=== PATIENT | female | born 1990 | race Caucasian/White ===

== ENCOUNTER 2016-10-03 19:40 | Observation (INO) | payer OTHER ==
[2016-10-03] MEDS ORDERED: methylPREDNISolone SOD SUCCI 125 MG/2 ML VIAL IV STA (20:03)
[2016-10-03] MEDS ORDERED: diphenhydrAMINE 50 MG/ML 1 ML VIAL IVP STA (20:03)
[2016-10-03] MEDS ORDERED: FAMOTIDINE 20 MG/2 ML VIAL IV STA (20:03)
[2016-10-03] MEDS ORDERED: RACEPINEPHRINE 2.25% NEB 0.5 ML NEBU INHALATION STA (20:03)
[2016-10-03] MEDS ORDERED: SODIUM CHLORIDE 0.9% 1,000 ML IV STA (20:03)
[2016-10-03] MEDS ORDERED: EPINEPHrine 1 MG/ML 1 ML AMP SQ ONE (20:08)
[2016-10-03] MEDS ORDERED: ONDANSETRON 4 MG/2 ML VIAL IVP STA (20:40)
[2016-10-03] MEDS ORDERED: MORPHINE SULFATE 4 MG/ML SYRINGE IVP STA (20:40)
[2016-10-03] MEDS ORDERED: HYDROmorphone 2 MG/ML 1 ML SYRINGE IVP STA ×2 (20:40→21:48)
--- NOTE | 2016-10-03 21:14 | ED ---
General Adult HPI - General Chief complaint: Allergic Reaction Stated complaint: Allergic Reaction Time Seen by Provider: 10/03/16 19:52 Source: patient, RN notes reviewed, old records reviewed Mode of arrival: wheelchair Limitations: no limitations - History of Present Illness Initial comments: This is a 25-year-old female here for evaluation of ALLERGIC reaction, patient has a peanut ALLERGY was exposed to peanuts today. Patient states she is having swelling of her mouth swelling of her tongue and mild shortness of breath , difficulty with swallowing. Patient does have a history of anaphylaxis, did take EpiPen to arrival. Patient states she is also having mild difficulty speaking - Related Data Home Medications Medication Instructions Recorded Confirmed Albuterol Inhaler [Ventolin Hfa 2 puff INHALATION RT-DAILY PRN 10/03/16 10/03/16 Inhaler] Albuterol Nebulized [Ventolin 2.5 mg INHALATION Q4H PRN 10/03/16 10/03/16 Nebulized] Famotidine [Pepcid] 20 mg PO BID 10/03/16 10/03/16 Fluticasone/Salmeterol [Advair 1 puff INHALATION RT-BID 10/03/16 10/03/16 500-50 Diskus] Fluticasone/Vilanterol [Breo 1 puff INHALATION RT-DAILY 10/03/16 10/03/16 Ellipta 100-25 Mcg Inhaler] Furosemide [Lasix] 40 mg PO DAILY 10/03/16 10/03/16 HYDROmorphone HCL 2 mg PO Q4HR PRN 10/03/16 10/03/16 INSULIN LISPRO (HumaLOG) [HumaLOG] 20 units SQ TID 10/03/16 10/03/16 Insulin Aspart [NovoLOG] 20 unit SQ TID 10/03/16 10/03/16 Insulin Glargine,Hum.rec.anlog 50 unit SQ HS 10/03/16 10/03/16 [Lantus Solostar] LORazepam [Ativan] 2 mg PO TID PRN 10/03/16 10/03/16 Montelukast Sodium [Singulair] 10 mg PO DAILY 10/03/16 10/03/16 NIFEdipine XL [Procardia Xl] 90 mg PO DAILY 10/03/16 10/03/16 QUEtiapine FUMARATE [Seroquel] 300 mg PO HS 10/03/16 10/03/16 Ranitidine HCl [Zantac] 150 mg PO DAILY 10/03/16 10/03/16 diphenhydrAMINE [Benadryl] 25 mg PO DAILY PRN 10/03/16 10/03/16 diphenhydrAMINE [Benadryl] 50 mg PO HS PRN 10/03/16 10/03/16 hydrALAZINE HCL 75 mg PO TID 10/03/16 10/03/16 metFORMIN HCL [Metformin HCl] 1,000 mg PO BID 10/03/16 10/03/16 traZODone HCL 200 mg PO BID 10/03/16 10/03/16 Allergies Allergy/AdvReac Type Severity Reaction Status Date / Time acetaminophen [From Tylenol] Allergy Anaphylaxis Verified 10/03/16 20:47 aspirin Allergy Anaphylaxis Verified 10/03/16 20:47 codeine Allergy Unknown Verified 10/03/16 20:47 ibuprofen [From Motrin] Allergy Anaphylaxis Verified 10/03/16 20:47 Iodinated Contrast Media - Allergy Unknown Verified 10/03/16 20:47 Oral and ipratropium [From Atrovent] Allergy Unknown Verified 10/03/16 20:47 peanut Allergy Anaphylaxis Verified 10/03/16 20:47 SEAFOOD Allergy Unknown Uncoded 10/03/16 20:47 Review of Systems ROS Statement: Those systems with pertinent positive or pertinent negative responses have been documented in the HPI. ROS Other: All systems not noted in ROS Statement are negative. Past Medical History Past Medical History: Asthma, Diabetes Mellitus, Hypertension, Seizure Disorder Additional Past Medical History / Comment(s): arthritis History of Any Multi-Drug Resistant Organisms: None Reported Smoking Status: Never smoker Past Alcohol Use History: Occasional Past Drug Use History: None Reported General Exam - General Exam Comments Initial Comments: No stridor noted, she does have oral swelling and angioedema Limitations: no limitations General appearance: alert, in no apparent distress Head exam: Present: atraumatic, normocephalic, normal inspection Eye exam: Present: normal appearance, PERRL, EOMI. Absent: scleral icterus, conjunctival injection, periorbital swelling ENT exam: Present: normal exam, mucous membranes moist Neck exam: Present: normal inspection. Absent: tenderness, meningismus, lymphadenopathy Respiratory exam: Present: normal lung sounds bilaterally. Absent: respiratory distress, wheezes, rales, rhonchi, stridor Cardiovascular Exam: Present: regular rate, normal rhythm, normal heart sounds. Absent: systolic murmur, diastolic murmur, rubs, gallop, clicks GI/Abdominal exam: Present: soft, normal bowel sounds. Absent: distended, tenderness, guarding, rebound, rigid Extremities exam: Present: normal inspection, full ROM, normal capillary refill. Absent: tenderness, pedal edema, joint swelling, calf tenderness Back exam: Present: normal inspection Neurological exam: Present: alert, oriented X3, CN II-XII intact Psychiatric exam: Present: normal affect, normal mood Skin exam: Present: warm, dry, intact, normal color. Absent: rash Course Vital Signs 10/03/16 10/03/16 10/03/16 19:43 20:16 20:25 Temperature 101.5 F H Pulse Rate 117 H 110 H 107 H Respiratory 20 Rate Blood Pressure 133/79 O2 Sat by Pulse 96 Oximetry 10/03/16 21:15 Temperature Pulse Rate 118 H Respiratory 20 Rate Blood Pressure 133/79 O2 Sat by Pulse 96 Oximetry - Reevaluation(s) Reevaluation #1: 10/03/16 21:13 Patient does have mild improvement at this time, again no stridor Reevaluation #2: 10/03/16 21:55 Patient having generalized pain, occasional shortness of breath Medical Decision Making - Medical Decision Making 25-year-old year with ALLERGIC reaction, exposure to peanuts, swollen tongue with angioedema, anaphylaxis given epi, patient will be admitted for continued antihistamine treatment and monitoring her cardiopulmonary status Disposition Clinical Impression: Allergic reaction, Anaphylaxis Disposition: HOME SELF-CARE Condition: Good Instructions: Anaphylaxis (ED) Referrals: Jackson Candelaria MD [Primary Care Provider] - 1-2 days
[2016-10-03 23:00] LABS: Glucose,Whole Blood 398 mg/dL (75-99)
[2016-10-03] MEDS ORDERED: INSULIN LISPRO (humaLOG) 300 UNIT/3 ML VIAL SQ ONE (23:17)
[2016-10-03] MEDS ORDERED: INSULIN GLARGINE 100 UNIT/ML 10 ML VIAL SQ SCH (23:30)
[2016-10-03] MEDS: methylPREDNISolone SOD SUCCI 125 MG/2 ML VIAL IV SCH (23:42)
[2016-10-04 00:57] VITALS: BMI 39.8
[2016-10-04] MEDS: HYDROmorphone 2 MG/ML 1 ML SYRINGE IVP PRN ×4 (02:00→13:59)
[2016-10-04] MEDS: diphenhydrAMINE 50 MG/ML 1 ML VIAL IVP PRN ×2 (02:02→08:09)
[2016-10-04 02:33] LABS: Glucose,Whole Blood 280 mg/dL (75-99)
[2016-10-04] MEDS: methylPREDNISolone SOD SUCCI 125 MG/2 ML VIAL IV SCH ×3 (05:59→11:57)
[2016-10-04 07:32] LABS: Glucose,Whole Blood 248 mg/dL (75-99)
[2016-10-04 07:36] VITALS: RESP 16
[2016-10-04] MEDS: INSULIN LISPRO (humaLOG) 300 UNIT/3 ML VIAL SQ SCH ×3 (08:16→17:38)
[2016-10-04] MEDS ORDERED: ENOXAPARIN 40 MG/0.4 ML SYRINGE SQ SCH (09:00)
[2016-10-04] MEDS ORDERED: FAMOTIDINE 20 MG/2 ML VIAL IV SCH (09:00)
[2016-10-04] MEDS ORDERED: methylPREDNISolone SOD SUCCI 125 MG/2 ML VIAL IV STA (10:21)
[2016-10-04] MEDS ORDERED: diphenhydrAMINE 50 MG/ML 1 ML VIAL IVP PRN (11:45)
[2016-10-04 12:20] LABS: Glucose,Whole Blood 349 mg/dL (75-99)
[2016-10-04 12:59] LABS: Anisocytosis Slight; Basophils % (A) 0 %; CH 19.8; CHCM 26.8; Eosinophils # (A) 0.1 k/uL (0-0.7); Eosinophils % (A) 1 %; HCT 34.3 % (34.0-46.0); HDW 3.56; HGB 9.5 gm/dL (11.4-16.0); Hypochromasia Marked; Luc # (Auto) 0.06; Luc % (Auto) 1; Lymphocytes # (A) 1.1 k/uL (1.0-4.8); Lymphocytes % (A) 10 %; MCH 20.6 pg (25.0-35.0); MCHC 27.8 g/dL (31.0-37.0); MCV 74.3 fL (80.0-100.0); Mean Platelet Volume 7.1; Microcytosis Moderate; Monocytes # (A) 0.2 k/uL (0-1.0); Monocytes % (A) 2 %; Neutrophils # (A) 9.3 k/uL (1.3-7.7); Neutrophils % (A) 87 %; Poikilocytosis Slight; RBC 4.61 m/uL (3.80-5.40); RDW 18.9 % (11.5-15.5); WBC 10.7 k/uL (3.8-10.6); WBC (Perox) 11.51
[2016-10-04 13:08] LABS: Anion Gap 9 mmol/L; Blood Urea Nitrogen 20 mg/dL (7-17); Calcium 9.8 mg/dL (8.4-10.2); Carbon Dioxide 23 mmol/L (22-30); Chloride 102 mmol/L (98-107); Glucose 306 mg/dL (74-99); Non-African American GFR(MDRD) >60 (>60 ml/min/1.73 sqM); Potassium 5.1 mmol/L (3.5-5.1); Sodium 134 mmol/L (137-145)
[2016-10-04] MEDS ORDERED: ALBUTEROL NEBULIZED 2.5 MG/3 ML INHALATION PRN ×2 (14:55)
[2016-10-04 15:01] LABS: Hemoglobin A1C 9.3 % (4.2-6.1)
[2016-10-04 15:04] VITALS: BP 137/88; PULSE 100; TEMP 97
[2016-10-04] MEDS ORDERED: HYDROmorphone 2 MG TAB PO PRN (15:16)
[2016-10-04] MEDS ORDERED: INSULIN LISPRO (humaLOG) 300 UNIT/3 ML VIAL SQ SCH (16:00)
--- NOTE | 2016-10-04 17:00 | HP ---
DATE OF ADMISSION: Patient is a 25-year-old female who is admitted because of allergic reaction to peanuts. Patient was exposed to peanuts; patient did not actually eat peanuts, but she just says she was exposed, and even the smell makes her have an allergic reaction, because of which patient was started on systemic steroids and patient was admitted. On exam, patient still has stridor and does have edema of the throat and tongue. Patient has multiple other medical issues, and patient is on multiple medications. Patient is tachycardic, hyponatremic because of her medications, including Aldactone, Lasix and hydralazine. Patient has difficulty in speech. Patient denied any fever or chills. Patient denied any nausea, vomiting, abdominal pain. Patient is ambulating in the hallways. Patient's blood sugars are elevated because of the systemic steroids. REVIEW OF SYSTEMS: GENERAL: As described in HPI. CONSTITUTIONAL: No fever, no malaise, no fatigue. HEENT: As described in HPI. CARDIOVASCULAR: No chest pain, orthopnea, PND, no palpitations, no syncope. PULMONARY: No shortness of breath, no cough, no hemoptysis. GASTROINTESTINAL: No diarrhea, no nausea, no vomiting, no abdominal pain. Normoactive bowel sounds. NEUROLOGICAL: No headaches, no weakness, no numbness. HEMATOLOGICAL: Denies any bleeding or petechiae. GENITOURINARY: Denies any burning micturition, frequency, or urgency. MUSCULOSKELETAL/RHEUMATOLOGICAL: Denies any joint pain, swelling, or any muscle pain. ENDOCRINE: Denies any polyuria or polydipsia. The rest of the 14 point review of systems is negative. HOME MEDICATIONS: 1. Albuterol. 2. Famotidine. 3. Fluticasone/salmeterol. 4. Lasix. 5. Hydromorphone. 6. Aspart. 7. Glargine. 8. Lorazepam. 9. Montelukast. 10. Nifedipine. 11. Seroquel. 12. Ranitidine. 13. Diphenhydramine. 14. Hydralazine. 15. Metformin. 16. Trazodone. ALLERGIES: 1. ACETAMINOPHEN. 2. ASPIRIN. 3. CODEINE. 4. IBUPROFEN. 5. PEANUT ALLERGY. 6. SEAFOOD ALLERGY. Past medical history is significant for: 1. Asthma. 2. Diabetes mellitus. 3. Hypertension. 4. Seizure disorder. 5. Multiple allergies, as mentioned above. SOCIAL HISTORY: Denied any smoking, alcohol abuse or any drug abuse. FAMILY HISTORY: None available at this point of time. Not relevant to her present medical problem, either. PHYSICAL EXAMINATION: VITAL SIGNS: Temperature 97.0, pulse of 100, respiratory rate of 16, blood pressure 137/88. Saturating at 93% on room air. GENERAL: The patient is alert and oriented x3, not in any acute distress. Well developed, well nourished. HEENT: Patient has angioedema, swollen tongue and swollen airway. CARDIOVASCULAR: S1 and S2 present. No murmurs, rubs, or gallops. PULMONARY: Patient has inspiratory stridor. No wheezing was appreciated. Fairly good air entry into bilateral lung warren. ABDOMEN: Soft, nontender, nondistended, normoactive bowel sounds. No palpable organomegaly. MUSCULOSKELETAL: No joint swelling or deformity. EXTREMITIES: No cyanosis, clubbing, or pedal edema. NEUROLOGICAL: Gross neurological examination did not reveal any focal deficits. SKIN: No rashes. LABORATORY DATA: CBC, CMP are abnormal for elevated WBC count of 10,700 due to systemic steroids. Patient has microcytic anemia, probably iron deficiency. Sodium of 134, potassium 5.1. Aldactone, spironolactone and Lasix are being discontinued because of that reason. ASSESSMENT AND PLAN: 1. Angioedema allergic reaction. Management as mentioned above with anticholinergic medication Benadryl and systemic steroids. Patient still has significant swelling of the tongue and stridor, because of which I am going to hold her here for today. Possibility of discharge tomorrow. 2. Asthma without any acute exacerbation. 3. Diabetes mellitus; uncontrolled blood sugars due to systemic steroids. 4. Hypertension. 5. Diabetes mellitus; uncontrolled blood sugars due to above-mentioned reasons. Patient's metformin will be continued. 6. Hyponatremia secondary to Aldactone and Lasix, which are being discontinued. 7. Tachycardia due to hydralazine and mild dehydration. Those medications will be discontinued. At this point of time I do not believe patient will need IV fluids. Patient is drinking water very well. Will monitor her today. Possibility of discharge tomorrow.
[2016-10-04 17:24] LABS: Glucose,Whole Blood 430 mg/dL (75-99)
[2016-10-04] MEDS ORDERED: metFORMIN 500 MG TAB PO SCH (17:30)
[2016-10-04] MEDS ORDERED: SYMBICORT 160-4.5 MCG INHALER INHALATION SCH (20:00)
[2016-10-04] MEDS ORDERED: QUEtiapine 100 MG TAB PO SCH (21:00)
[2016-10-04] MEDS ORDERED: predniSONE 20 MG TAB PO SCH (21:00)
[2016-10-04] MEDS ORDERED: METOPROLOL SUCCINATE (ER) 25 MG TAB.ER.24H PO SCH (21:00)
[2016-10-04] MEDS ORDERED: INSULIN GLARGINE 100 UNIT/ML 10 ML VIAL SQ SCH (21:00)
[2016-10-04] MEDS ORDERED: traZODone HCL 100 MG TAB PO SCH (21:00)
[2016-10-04] MEDS ORDERED: FAMOTIDINE 20 MG TAB PO SCH (21:00)
[2016-10-05] MEDS ORDERED: MONTELUKAST 10 MG TAB PO SCH (09:00)
[2016-10-05] MEDS ORDERED: FERROUS SULFATE 325 MG TAB PO SCH (09:00)
[2016-10-05] MEDS ORDERED: NIFEdipine XL 90 MG TAB.ER.24 PO SCH (09:00)
--- NOTE | 2016-10-06 13:42 | DS ---
DATE OF ADMISSION: 10/03/2016 DATE OF DISCHARGE: 10/04/2016 The patient left AGAINST MEDICAL ADVICE yesterday.
== END 2016-10-04 18:45 | disposition left against medical advice (07) ==
LOC: EC 19:40 → INTOOBSV 21:49 → 5MS5E 21:49
PROVIDERS: ADMIT Hospitalist; ATTEND Hospitalist
DX: T78.01XA Anaphylactic reaction due to peanuts, initial encounter (principal); J45.909 Unspecified asthma, uncomplicated; I10 Essential (primary) hypertension; M19.90 Unspecified osteoarthritis, unspecified site; D50.9 Iron deficiency anemia, unspecified; E11.65 Type 2 diabetes mellitus with hyperglycemia; E87.1 Hypo-osmolality and hyponatremia; T50.0X5A Adverse effect of mineralocorticoids and their antagonists, initial encounter; E86.0 Dehydration; G40.909 Epilepsy, unspecified, not intractable, without status epilepticus; Z79.899 Other long term (current) drug therapy; Z79.4 Long term (current) use of insulin; Z79.51 Long term (current) use of inhaled steroids; Z79.84 Long term (current) use of oral hypoglycemic drugs; Z88.6 Allergy status to analgesic agent; Z91.041 Radiographic dye allergy status; Z88.5 Allergy status to narcotic agent; Z91.010 Allergy to peanuts; Z91.013 Allergy to seafood
CPT/HCPCS: 96376 ×3; 96372 ×2; 96374; 96375; 99285; 94640; 84439; 80048; 84443; 83036; 85025; G0378 ×2; J0171; J1170 ×2; J1200 ×2; J2930 ×2; J2405; J1650

== ENCOUNTER 2017-10-13 19:41 | Emergency (ER) | payer OTHER ==
[2017-10-13] MEDS ORDERED: methylPREDNISolone SOD SUCCI 125 MG/2 ML VIAL IV STA (19:43)
[2017-10-13] MEDS ORDERED: diphenhydrAMINE 50 MG CAP PO STA (19:43)
[2017-10-13] MEDS ORDERED: FAMOTIDINE 20 MG/2 ML VIAL IV STA (19:43)
[2017-10-13] MEDS ORDERED: diphenhydrAMINE 50 MG/ML 1 ML VIAL IM STA (19:56)
[2017-10-13] MEDS ORDERED: methylPREDNISolone SOD SUCCI 125 MG/2 ML VIAL IM ONE (19:57)
[2017-10-13] MEDS ORDERED: ALBUTEROL NEBULIZED 2.5 MG/3 ML INHALATION STA (20:17)
--- NOTE | 2017-10-13 20:30 | XR ---
EXAMINATION TYPE: XR chest 1V portable DATE OF EXAM: 10/13/2017 COMPARISON: NONE HISTORY: Difficulty breathing TECHNIQUE: Single frontal view of the chest is obtained. FINDINGS: There is no heart failure nor confluent pneumonic infiltrate. There is slight blunting of left costophrenic angle. Mediastinum is normal. There are chest leads. Bony thorax appears intact. IMPRESSION: There is some pleural reaction at the left lateral lung base. No heart failure.
--- NOTE | 2017-10-13 20:33 | ED ---
General Adult HPI - General Chief complaint: Allergic Reaction Stated complaint: ALLERGIC REACTION Time Seen by Provider: 10/13/17 19:42 Source: patient, RN notes reviewed, old records reviewed Mode of arrival: wheelchair Limitations: no limitations - History of Present Illness Initial comments: 26-year-old female presenting for suspected ALLERGIC reaction. Patient has history of multiple food drug ALLERGIES. She believes her food was cross contaminated with peanuts. She does have a severe peanut ALLERGY. She did not have her EpiPen available. She developed tongue and lip swelling. She was brought from just outside the hospital. She normally lives out of town and did not have her medication with her. The patient states she's had many reactions in the past. She also has asthma, hypertension and CHF and morbid obesity. She is not currently on any Umair inhibitors. She has been intubated for her asthma in the past and his history of tracheostomy. She currently does not have a tracheostomy. No abdominal pain or nausea vomiting. - Related Data Home Medications Medication Instructions Recorded Confirmed Albuterol Inhaler [Ventolin Hfa 2 puff INHALATION RT-DAILY PRN 10/03/16 10/03/16 Inhaler] Albuterol Nebulized [Ventolin 2.5 mg INHALATION Q4H PRN 10/03/16 10/03/16 Nebulized] Famotidine [Pepcid] 20 mg PO BID 10/03/16 10/03/16 Ferrous Sulfate [Iron] 325 mg PO DAILY 10/03/16 10/03/16 Fluticasone/Salmeterol [Advair 1 puff INHALATION RT-BID 10/03/16 10/03/16 500-50 Diskus] Fluticasone/Vilanterol [Breo 1 puff INHALATION RT-DAILY 10/03/16 10/03/16 Ellipta 100-25 Mcg Inhaler] Furosemide [Lasix] 40 mg PO DAILY 10/03/16 10/03/16 HYDROmorphone HCL 2 mg PO Q4HR PRN 10/03/16 10/03/16 INSULIN LISPRO (HumaLOG) [HumaLOG] 20 units SQ TID 10/03/16 10/03/16 Insulin Aspart [NovoLOG] 20 unit SQ TID 10/03/16 10/03/16 Insulin Glargine,Hum.rec.anlog 50 unit SQ HS 10/03/16 10/03/16 [Lantus Solostar] LORazepam [Ativan] 2 mg PO TID PRN 10/03/16 10/03/16 Metoprolol Succinate (ER) [Toprol 25 mg PO BID 10/03/16 10/03/16 Xl] Montelukast Sodium [Singulair] 10 mg PO DAILY 10/03/16 10/03/16 NIFEdipine XL [Procardia Xl] 90 mg PO DAILY 10/03/16 10/03/16 QUEtiapine FUMARATE [Seroquel] 300 mg PO HS 10/03/16 10/03/16 Ranitidine HCl [Zantac] 150 mg PO DAILY 10/03/16 10/03/16 Spironolactone 50 mg PO DAILY 10/03/16 10/03/16 diphenhydrAMINE [Benadryl] 25 mg PO DAILY PRN 10/03/16 10/03/16 diphenhydrAMINE [Benadryl] 50 mg PO HS PRN 10/03/16 10/03/16 hydrALAZINE HCL 75 mg PO TID 10/03/16 10/03/16 metFORMIN HCL [Metformin HCl] 1,000 mg PO BID 10/03/16 10/03/16 traZODone HCL 200 mg PO BID 10/03/16 10/03/16 Previous Rx's Medication Instructions Recorded Albuterol Inhaler [Ventolin Hfa 1 - 2 puff INHALATION Q4HR PRN #1 10/13/17 Inhaler] inhaler EPINEPHrine [Epipen 2-Pwael] 0.3 mg IM ONCE PRN #1 pack 10/13/17 diphenhydrAMINE [Benadryl] 25 mg PO TID PRN #21 capsule 10/13/17 predniSONE 50 mg PO DAILY #5 tab 10/13/17 Allergies Allergy/AdvReac Type Severity Reaction Status Date / Time acetaminophen [From Tylenol] Allergy Anaphylaxis Verified 10/13/17 19:55 aspirin Allergy Anaphylaxis Verified 10/13/17 19:55 codeine Allergy Unknown Verified 10/13/17 19:55 ibuprofen [From Motrin] Allergy Anaphylaxis Verified 10/13/17 19:55 Iodinated Contrast- Oral and Allergy Unknown Verified 10/13/17 19:55 IV Dye [Iodinated Contrast Media - Oral and] ipratropium [From Atrovent] Allergy Unknown Verified 10/13/17 19:55 peanut Allergy Anaphylaxis Verified 10/13/17 19:55 SEAFOOD Allergy Unknown Uncoded 10/13/17 19:55 Review of Systems ROS Statement: Those systems with pertinent positive or pertinent negative responses have been documented in the HPI. ROS Other: All systems not noted in ROS Statement are negative. Past Medical History Past Medical History: Asthma, Diabetes Mellitus, Hypertension, Seizure Disorder Additional Past Medical History / Comment(s): arthritis. Pt states she has chf History of Any Multi-Drug Resistant Organisms: None Reported Additional Past Surgical History / Comment(s): tracheostomy Past Psychological History: Anxiety, Bipolar, Depression, Schizophrenia Smoking Status: Never smoker Past Alcohol Use History: Occasional Past Drug Use History: None Reported General Exam Limitations: no limitations General appearance: alert, in no apparent distress Head exam: Present: atraumatic, normocephalic Eye exam: Present: normal appearance, PERRL, EOMI ENT exam: Present: other (She has some lower lip swelling and mild tongue swelling, no posterior pharyngeal swelling or uvular swelling. There is no stridor.) Respiratory exam: Absent: respiratory distress, wheezes Cardiovascular Exam: Present: normal rhythm, tachycardia GI/Abdominal exam: Present: soft. Absent: distended, tenderness Extremities exam: Present: normal inspection, normal capillary refill. Absent: pedal edema Neurological exam: Present: alert, oriented X3, CN II-XII intact. Absent: motor sensory deficit Psychiatric exam: Present: normal affect, normal mood Skin exam: Present: warm, dry, intact. Absent: cyanosis, diaphoretic Course Vital Signs 10/13/17 10/13/17 10/13/17 19:43 19:57 20:01 Temperature 96.9 F L Pulse Rate 118 H 112 H Respiratory 20 16 14 Rate Blood Pressure 153/74 153/74 O2 Sat by Pulse 97 97 Oximetry 10/13/17 10/13/17 10/13/17 20:18 20:28 20:44 Temperature Pulse Rate 108 H 100 100 Respiratory 19 Rate Blood Pressure 127/63 O2 Sat by Pulse 98 Oximetry 10/13/17 20:55 Temperature Pulse Rate 105 H Respiratory 18 Rate Blood Pressure 96/50 O2 Sat by Pulse 97 Oximetry - Reevaluation(s) Reevaluation #1: 10/13/17 22:18 Patient observed with improvement in lip and tongue swelling. No respiratory distress. No signs of anaphylaxis. Medical Decision Making - Medical Decision Making 26-year-old female presents with suspected. ALLERGIC reaction. Patient is morbidly obese, she does have some possible lower lip swelling and tongue swelling or she is speaking in full sentences there is no posterior swelling. No stridor. No respiratory distress. No vomiting or abdominal pain. She does have history of asthma and multiple ALLERGIC reactions. She has been intubated in the past however I feel this occasion he is not severe. She is given steroids, Pepcid, and Benadryl. She has improvement of her symptoms. She is ambulatory in the emergency department without difficulty. She is watching TV and drinking juice. She will be given a prescription for Benadryl, steroids, and refill of her EpiPen. Disposition Clinical Impression: Food allergy, Allergic reaction Disposition: HOME SELF-CARE Condition: Good Instructions: Food Allergy (ED), Peanut Allergy (ED) Additional Instructions: Please follow up with her primary care physician. Prescriptions: Albuterol Inhaler [Ventolin Hfa Inhaler] 1 - 2 puff INHALATION Q4HR PRN #1 inhaler PRN Reason: Shortness Of Breath diphenhydrAMINE [Benadryl] 25 mg PO TID PRN #21 capsule PRN Reason: Allergic Reaction EPINEPHrine [Epipen 2-Pawel] 0.3 mg IM ONCE PRN #1 pack PRN Reason: Allergic Reaction predniSONE 50 mg PO DAILY #5 tab Is patient prescribed a controlled substance at d/c from ED?: No Referrals: Nonstaff,Physician [Primary Care Provider] - 1-2 days Time of Disposition: 22:25
[2017-10-13 22:42] VITALS: BP 125/60; PULSE 101; RESP 19; TEMP 98.2
== END 2017-10-13 22:47 | disposition home or self-care (01) ==
LOC: EC 19:41
DX: T78.1XXA Other adverse food reactions, not elsewhere classified, initial encounter (principal); R00.0 Tachycardia, unspecified; J45.909 Unspecified asthma, uncomplicated; I11.0 Hypertensive heart disease with heart failure; I50.9 Heart failure, unspecified; E11.9 Type 2 diabetes mellitus without complications; F20.9 Schizophrenia, unspecified; F31.9 Bipolar disorder, unspecified; F41.9 Anxiety disorder, unspecified; E66.01 Morbid (severe) obesity due to excess calories; Z79.4 Long term (current) use of insulin; Z79.51 Long term (current) use of inhaled steroids; Z79.899 Other long term (current) drug therapy; Z88.5 Allergy status to narcotic agent; Z88.6 Allergy status to analgesic agent; Z88.8 Allergy status to other drugs, medicaments and biological substances; Z91.010 Allergy to peanuts; Z91.013 Allergy to seafood; Z91.041 Radiographic dye allergy status; Z68.38 Body mass index [BMI] 38.0-38.9, adult; Z53.8 Procedure and treatment not carried out for other reasons
CPT/HCPCS: 94640; 71045; 99285; 96372 ×2; J1200; J2930

== ENCOUNTER 2017-10-14 09:43 | Observation (INO) | payer OTHER ==
[2017-10-14] MEDS ORDERED: DEXAMETHASONE SOD PHOSPHATE 10 MG/ML 1 ML VIAL IV STA (10:03)
[2017-10-14] MEDS ORDERED: diphenhydrAMINE 50 MG/ML 1 ML VIAL IVP STA (10:03)
[2017-10-14] MEDS ORDERED: SODIUM CHLORIDE 0.9% 1,000 ML IV ONE (10:03)
[2017-10-14] MEDS ORDERED: EPINEPHrine 1 MG/ML 1 ML AMP SQ PRN (10:03)
[2017-10-14] MEDS ORDERED: FAMOTIDINE 20 MG/2 ML VIAL IV STA (10:03)
--- NOTE | 2017-10-14 10:11 | ED ---
General Adult HPI - General Chief complaint: Allergic Reaction Stated complaint: Allergic Reaction Time Seen by Provider: 10/14/17 09:56 Source: patient, RN notes reviewed, old records reviewed Mode of arrival: EMS Limitations: physical limitation - History of Present Illness Initial comments: This is a 26-year-old female the ER for evaluation. Patient resents today for evaluation of swelling, patient afebrile except as a transfer patient. Patient states she feels like her tongue and lip are swollen. She was in the hospital last night for similar complaint. Patient to go to [facility] after discharge states she is very she currently. Denies shortness of breath. Patient states she received epinephrine a prior hospital. She thinks she was exposed to peanuts. She does admit to history of multiple intubations and significant hospitalizations - Related Data Home Medications Medication Instructions Recorded Confirmed Albuterol Inhaler [Ventolin Hfa 2 puff INHALATION RT-DAILY PRN 10/03/16 10/03/16 Inhaler] Albuterol Nebulized [Ventolin 2.5 mg INHALATION Q4H PRN 10/03/16 10/03/16 Nebulized] Famotidine [Pepcid] 20 mg PO BID 10/03/16 10/03/16 Ferrous Sulfate [Iron] 325 mg PO DAILY 10/03/16 10/03/16 Fluticasone/Salmeterol [Advair 1 puff INHALATION RT-BID 10/03/16 10/03/16 500-50 Diskus] Fluticasone/Vilanterol [Breo 1 puff INHALATION RT-DAILY 10/03/16 10/03/16 Ellipta 100-25 Mcg Inhaler] Furosemide [Lasix] 40 mg PO DAILY 10/03/16 10/03/16 HYDROmorphone HCL 2 mg PO Q4HR PRN 10/03/16 10/03/16 INSULIN LISPRO (HumaLOG) [HumaLOG] 20 units SQ TID 10/03/16 10/03/16 Insulin Aspart [NovoLOG] 20 unit SQ TID 10/03/16 10/03/16 Insulin Glargine,Hum.rec.anlog 50 unit SQ HS 10/03/16 10/03/16 [Lantus Solostar] LORazepam [Ativan] 2 mg PO TID PRN 10/03/16 10/03/16 Metoprolol Succinate (ER) [Toprol 25 mg PO BID 10/03/16 10/03/16 Xl] Montelukast Sodium [Singulair] 10 mg PO DAILY 10/03/16 10/03/16 NIFEdipine XL [Procardia Xl] 90 mg PO DAILY 10/03/16 10/03/16 QUEtiapine FUMARATE [Seroquel] 300 mg PO HS 10/03/16 10/03/16 Ranitidine HCl [Zantac] 150 mg PO DAILY 10/03/16 10/03/16 Spironolactone 50 mg PO DAILY 10/03/16 10/03/16 diphenhydrAMINE [Benadryl] 25 mg PO DAILY PRN 10/03/16 10/03/16 diphenhydrAMINE [Benadryl] 50 mg PO HS PRN 10/03/16 10/03/16 hydrALAZINE HCL 75 mg PO TID 10/03/16 10/03/16 metFORMIN HCL [Metformin HCl] 1,000 mg PO BID 10/03/16 10/03/16 traZODone HCL 200 mg PO BID 10/03/16 10/03/16 Previous Rx's Medication Instructions Recorded Albuterol Inhaler [Ventolin Hfa 1 - 2 puff INHALATION Q4HR PRN #1 10/13/17 Inhaler] inhaler EPINEPHrine [Epipen 2-Pawel] 0.3 mg IM ONCE PRN #1 pack 10/13/17 diphenhydrAMINE [Benadryl] 25 mg PO TID PRN #21 capsule 10/13/17 predniSONE 50 mg PO DAILY #5 tab 10/13/17 Allergies Allergy/AdvReac Type Severity Reaction Status Date / Time acetaminophen [From Tylenol] Allergy Anaphylaxis Verified 10/14/17 09:56 aspirin Allergy Anaphylaxis Verified 10/14/17 09:56 codeine Allergy Unknown Verified 10/14/17 09:56 ibuprofen [From Motrin] Allergy Anaphylaxis Verified 10/14/17 09:56 Iodinated Contrast- Oral and Allergy Unknown Verified 10/14/17 09:56 IV Dye [Iodinated Contrast Media - Oral and] ipratropium [From Atrovent] Allergy Unknown Verified 10/13/17 19:55 peanut Allergy Anaphylaxis Verified 10/14/17 09:56 SEAFOOD Allergy Unknown Uncoded 10/14/17 09:56 Review of Systems ROS Statement: Those systems with pertinent positive or pertinent negative responses have been documented in the HPI. ROS Other: All systems not noted in ROS Statement are negative. Past Medical History Past Medical History: Asthma, Diabetes Mellitus, Hypertension, Seizure Disorder Additional Past Medical History / Comment(s): arthritis. Pt states she has chf History of Any Multi-Drug Resistant Organisms: MRSA, VRE Date of last positivie culture/infection: 2015 MDRO Source:: BLOOD Past Surgical History: Hernia Repair Additional Past Surgical History / Comment(s): tracheostomy, Past Psychological History: Anxiety, Bipolar, Depression, Schizophrenia Smoking Status: Never smoker Past Alcohol Use History: Occasional Past Drug Use History: None Reported General Exam - General Exam Comments Initial Comments: No stridor Limitations: physical limitation General appearance: alert, in no apparent distress Head exam: Present: atraumatic, normocephalic, normal inspection Eye exam: Present: normal appearance, PERRL, EOMI. Absent: scleral icterus, conjunctival injection, periorbital swelling ENT exam: Present: other (Significant swelling or edema, lip and tongue swelling ) Neck exam: Present: normal inspection. Absent: tenderness, meningismus, lymphadenopathy Respiratory exam: Present: normal lung sounds bilaterally. Absent: respiratory distress, wheezes, rales, rhonchi, stridor Cardiovascular Exam: Present: normal rhythm, tachycardia, normal heart sounds. Absent: systolic murmur, diastolic murmur, rubs, gallop, clicks GI/Abdominal exam: Present: soft, normal bowel sounds. Absent: distended, tenderness, guarding, rebound, rigid Extremities exam: Present: normal inspection, full ROM, normal capillary refill. Absent: tenderness, pedal edema, joint swelling, calf tenderness Back exam: Present: normal inspection Neurological exam: Present: alert, oriented X3, CN II-XII intact Psychiatric exam: Present: normal affect, normal mood Skin exam: Present: warm, dry, intact, normal color. Absent: rash Course Vital Signs 10/14/17 10/14/17 09:45 09:57 Temperature 98.1 F Pulse Rate 119 H Respiratory 18 18 Rate Blood Pressure 153/85 O2 Sat by Pulse 97 Oximetry - Reevaluation(s) Reevaluation #1: 10/14/17 10:06 Chest or paperwork is thoroughly reviewed Reevaluation #2: 10/14/17 10:06 Note no stridors continued to be noted on exam Reevaluation #3: 10/14/17 10:11 Prior ER visits as well as inpatient admission reviewed here at this hospital EKG Findings - EKG Comments: EKG Findings:: EKG shows sinus tachycardia rate 113, LA 136, QRS 76, QTc 458 Medical Decision Making - Medical Decision Making 26 female in transfer regards to angioedema versus plaque reaction likely to peanuts. Patient was in our ER last night for similar complaints. Third visit in 3 days. Patient does have swelling of tongue, will admit for continued evaluation and treatment a she also significant history of multiple admissions with tracheostomy Critical Care Time Critical Care Time: Yes Total Critical Care Time: 31 Disposition Clinical Impression: Allergic reaction, Anaphylaxis, Angioedema Disposition: ADMITTED IP TO THIS [facility] Condition: Serious Is patient prescribed a controlled substance at d/c from ED?: No Referrals: Nonstaff,Physician [Primary Care Provider] - 1-2 days
[2017-10-14] MEDS ORDERED: DEXAMETHASONE SOD PHOSPHATE 4 MG/ML 1 ML VIAL IV SCH (12:00)
[2017-10-14 12:54] LABS: Glucose,Whole Blood 391 mg/dL (75-99)
[2017-10-14] MEDS: diphenhydrAMINE 50 MG/ML 1 ML VIAL IVP SCH ×2 (13:36→17:49)
--- NOTE | 2017-10-14 16:47 | P.HPIM ---
History of Present Illness 26-year-old female the ER for evaluation. Patient resents today for evaluation of swelling, patient afebrile except as a transfer patient. Patient states she feels like her tongue and lip are swollen. She was in the hospital last night for similar complaint. Patient to go to [facility] after discharge states she is very she currently. Denies shortness of breath. Patient states she received epinephrine a prior hospital. She thinks she was exposed to peanuts. She does admit to history of multiple intubations and significant hospitalizations. Patient did eat breakfast at [employer] none of her breakfast appears to have peanuts in it. Patient although does have stridor because of which ENT was consulted, tongue swelling is questionable. Patient later in the day is found to have skin breakdown and an ulcer in the right upper arm which she sees secondary to insulin injections. Patient doesn' t know what medications he takes at home. Patient blood sugars are definitely elevated here and patient was started on sliding scale insulin. Patient was also complaining of pain in the throat area and requesting opiate pain medications. Patient states she takes Dilaudid orally from [facility] for her chronic low back pain. Will benefit from [facility] regarding her Dilaudid prescription. Patient will not be started on an opiates at this time. There is no evidence of infection in the right arm and I do not believe patient pain secondary to swelling in the throat will qualify for opiate analgesia. Patient is being treated for angioedema. Is on Benadryl oral along with IV Decadron and Pepcid. Patient did is bit tachycardic appears to be sinus tachycardia secondary to her angioedema and obesity. Patient appears to have fat inflammation of the fat around the ulcer site in the right upper, with nodularity and some induration around the ulcer site. will obtain ultrasound of the right upper arm clinically doesn't appear to be infected. Review of Systems PHYSICAL EXAMINATION: GENERAL: The patient is alert and oriented x3, not in any acute distress. Well developed, well nourished. Obese HEENT: Pupils are round and equally reacting to light. EOMI. No scleral icterus. No conjunctival pallor. Normocephalic, atraumatic. No pharyngeal erythema. No thyromegaly. There is probably little swelling of tongue and throat CARDIOVASCULAR: S1 and S2 present. No murmurs, rubs, or gallops. Tachycardic PULMONARY: Inspiratory stridor was appreciated fairly good air entry into bilateral lung warren ABDOMEN: Soft, nontender, nondistended, normoactive bowel sounds. No palpable organomegaly. MUSCULOSKELETAL: No joint swelling or deformity. EXTREMITIES: No cyanosis, clubbing, or pedal edema. Patient had an ulcer in the right approximately as mentioned in the interval history NEUROLOGICAL: Gross neurological examination did not reveal any focal deficits. SKIN: No rashes. 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 History of Any Multi-Drug Resistant Organisms: MRSA, VRE Date of last positivie culture/infection: 2015 MDRO Source:: BLOOD Past Surgical History: Hernia Repair Additional Past Surgical History / Comment(s): tracheostomy, abdominal hernia surgery x2 Past Anesthesia/Blood Transfusion Reactions: No Reported Reaction Past Psychological History: Anxiety, Bipolar, Depression, Schizophrenia Additional Psychological History / Comment(s): Pt resides in [place]. Pt states she lives with a friend. She does not drive, she walks to her doctor appts or takes public transportation. Smoking Status: Former smoker Past Alcohol Use History: Occasional Additional Past Alcohol Use History / Comment(s): Pt started smoking as a teen and quit in 2010. Past Drug Use History: None Reported - Past Family History Father History Unknown: Yes Family Medical History: Hypertension, Renal Disease Mother Family Medical History: Asthma, Hypertension, Renal Disease Additional Family Medical History / Comment(s): Mother is from asthma. Medications and Allergies Home Medications Medication Instructions Recorded Confirmed Type Unable To Assess [Unable to Assess] 10/14/17 10/14/17 History Allergies Allergy/AdvReac Type Severity Reaction Status Date / Time acetaminophen [From Tylenol] Allergy Anaphylaxis Verified 10/14/17 10:26 amlodipine [From Norvasc] Allergy Unknown Verified 10/14/17 10:26 amoxicillin [From Amoxil] Allergy Unknown Verified 10/14/17 10:26 aspirin Allergy Anaphylaxis Verified 10/14/17 10:26 azithromycin Allergy Unknown Verified 10/14/17 10:26 cephalexin [From Keflex] Allergy Unknown Verified 10/14/17 10:26 codeine Allergy Unknown Verified 10/14/17 10:26 doxycycline Allergy Unknown Verified 10/14/17 10:26 duloxetine [From Cymbalta] Allergy Unknown Verified 10/14/17 10:26 fluconazole [From Diflucan] Allergy Unknown Verified 10/14/17 10:26 ibuprofen [From Motrin] Allergy Anaphylaxis Verified 10/14/17 10:26 Iodinated Contrast- Oral and Allergy Unknown Verified 10/14/17 10:26 IV Dye [Iodinated Contrast Media - Oral and] iodine Allergy Unknown Verified 10/14/17 10:26 ipratropium [From Atrovent] Allergy Unknown Verified 10/14/17 10:26 ketorolac [From Toradol] Allergy Unknown Verified 10/14/17 10:26 levofloxacin [From Levaquin] Allergy Unknown Verified 10/14/17 10:26 lisinopril Allergy Unknown Verified 10/14/17 10:26 naproxen Allergy Unknown Verified 10/14/17 10:26 peanut Allergy Anaphylaxis Verified 10/14/17 10:26 sertraline [From Zoloft] Allergy Unknown Verified 10/14/17 10:26 shellfish derived [Shellfish] Allergy Unknown Verified 10/14/17 10:26 sulfamethoxazole Allergy Unknown Verified 10/14/17 10:26 [From Bactrim] tramadol Allergy Unknown Verified 10/14/17 10:26 tree nut Allergy Unknown Verified 10/14/17 10:26 trimethoprim [From Bactrim] Allergy Unknown Verified 10/14/17 10:26 SEAFOOD Allergy Unknown Uncoded 10/14/17 09:56 Physical Exam Vitals: Vital Signs Temp Pulse Pulse Pulse Resp BP BP 10/14/17 16:00 106 H 18 10/14/17 11:57 106 H 18 10/14/17 11:55 98.6 F 107 H 16 129/84 10/14/17 10:55 98.1 F 115 H 18 135/83 10/14/17 09:57 18 10/14/17 09:45 98.1 F 119 H 18 153/85 Pulse Ox 10/14/17 16:00 10/14/17 11:57 10/14/17 11:55 98 10/14/17 10:55 98 10/14/17 09:57 10/14/17 09:45 97 Intake and Output 10/14/17 10/14/17 10/14/17 06:59 14:59 22:59 Intake Total 400 Balance 400 Intake: Intake, IV Titration 400 Amount Sodium Chloride 0.9% 1, 400 000 ml @ 100 mls/hr IV . Q10H ONE Rx#:[id number] Other: Voiding Method Toilet Toilet # Voids 3 3 Weight 98.883 kg Results Labs: Abnormal Lab Results - Last 24 Hours (Table) 10/14/17 Range/Units 12:53 POC Glucose (mg/dL) 391 H (75-99) mg/dL Thrombosis Risk Factor Assmnt - Choose All That Apply Any of the Below Risk Factors Present?: Yes Each Factor Represents 1 point: Obesity (BMI >25) Other Risk Factors: No Other congenital or acquired thrombophilia - If yes, enter type in comment: No Thrombosis Risk Factor Assessment Total Risk Factor Score: 1 Thrombosis Risk Factor Assessment Level: Low Risk Assessment and Plan Plan: -Angioedema, multiple ALLERGIES: Etiology of angioedema is unknown patient is on systemic steroids, Benadryl as needed and Pepcid. ENT was consulted. We will monitor her clinically. -Tachycardia secondary to angioedema and obesity contributing to that -Possibility of diabetes mellitus: Patient will be started on sliding scale insulin and was able to review her previous medical records patient appears to have type 2 diabetes mellitus -Ulcer in the right arm as mentioned above does not appear to be infected obtain ultrasound of the right arm, urine drug screen.
[2017-10-14 17:11] LABS: Glucose,Whole Blood 473 mg/dL (75-99)
[2017-10-14 17:12] LABS: Glucose,Whole Blood 493 mg/dL (75-99)
[2017-10-14] MEDS: INSULIN ASPART 100 UNIT/ML 1 ML 10 ML VIAL SQ SCH ×2 (17:22→21:18)
[2017-10-14] MEDS: DEXAMETHASONE SOD PHOSPHATE 10 MG/ML 1 ML VIAL IV SCH (17:49)
--- NOTE | 2017-10-14 18:11 | US ---
EXAMINATION TYPE: US extremity nonvasc mass RT DATE OF EXAM: 10/14/2017 COMPARISON: NONE CLINICAL HISTORY: R/O abscess. Right upper arm lump with puncture hole. Shadowing seen at lump area where puncture hole is. No fluid is visualized. IMPRESSION: No fluid identified. There is some shadowing that could relate to small soft tissue air bubbles.
[2017-10-14] MEDS: NYSTATIN 100,000 UNIT/GM POWD 15 GM TOPICAL SCH ×2 (19:16→21:22)
[2017-10-14 20:46] LABS: Glucose,Whole Blood 474 mg/dL (75-99)
[2017-10-14] MEDS ORDERED: INSULIN DETEMIR 100 UNIT/ML 10 ML VIAL SQ SCH (21:00)
[2017-10-14] MEDS: FAMOTIDINE 20 MG/2 ML VIAL IV SCH (21:18)
[2017-10-15] MEDS: DEXAMETHASONE SOD PHOSPHATE 10 MG/ML 1 ML VIAL IV SCH ×2 (01:07→05:48)
[2017-10-15] MEDS: diphenhydrAMINE 50 MG/ML 1 ML VIAL IVP SCH ×2 (01:08→05:48)
[2017-10-15 04:09] LABS: Urine Alcohol Negative (Negative); Urine Barbiturate Negative (Negative); Urine Cocaine Negative (Negative); Urine Methadone Negative (Negative); Urine Opiates Negative (Negative); Urine Phencyclidine Negative (Negative)
[2017-10-15 06:24] VITALS: BP 139/92; PULSE 102; RESP 18; TEMP 97.7
[2017-10-15 07:08] LABS: Glucose,Whole Blood 430 mg/dL (75-99)
[2017-10-15] MEDS: NYSTATIN 100,000 UNIT/GM POWD 15 GM TOPICAL SCH (07:55)
[2017-10-15] MEDS: INSULIN ASPART 100 UNIT/ML 1 ML 10 ML VIAL SQ SCH ×2 (07:55→12:41)
[2017-10-15] MEDS: FAMOTIDINE 20 MG/2 ML VIAL IV SCH (07:58)
[2017-10-15 11:16] LABS: Glucose,Whole Blood 313 mg/dL (75-99)
--- NOTE | 2017-10-15 11:22 | P.DS ---
Providers Date of admission: 10/14/17 10:19 Attending physician: Jama Robertson Consults: 10/14/17 10:03 Consult Physician Routine Consulting Provider: Robin Rutherford Consult Reason/Comments: angioedema Do you want consulting provider notified?: Yes Primary care physician: Physician Nonstaff Hospital Course: 26-year-old admitted for possible angioedema patient's the tongue swelling completely resolved. Patient is a poor historian as although she knows all her medication yesterday she said she doesn't know any of her medications. Patient evidently takes 80 units of Lantus and 24 units of NovoLog with each meal and patient does have discussed she will continue these. Patient is sinus tachycardic which is probably her baseline my suspicion is low for any infection. Her right arm ultrasound did not show any abscess and. And it clinically doesn't look infected. Will not need any antibiotics. Patient does take negative and apparently. Patient will benefit from MAGNOLIA inhibitor or angiotensin receptor diamond down the line I'll obtain basic lab testing which is not available today if that is okay patient will be discharged because of her sinus tachycardia which is nonspecific patient will be discharged on metoprolol. As mentioned above patient will benefit from MAGNOLIA inhibitor or angiotensin the Septra diamond because of her diabetes mellitus. Patient does have history of asthma does have minimal expiratory wheezing good air entry into bilateral lung warren because of which I'll discharge her on inhaled steroids systemic steroids are not necessary at this point of time and systemic steroids are responsible for her uncontrolled blood sugars. Patient does have intertrigo and redness in the vaginal area secondary to local fungal infection patient will be discharged on nystatin powder for that PHYSICAL EXAMINATION: GENERAL: The patient is alert and oriented x3, not in any acute distress. Well developed, well nourished. HEENT: Pupils are round and equally reacting to light. EOMI. No scleral icterus. No conjunctival pallor. Normocephalic, atraumatic. No pharyngeal erythema. No thyromegaly. CARDIOVASCULAR: S1 and S2 present. No murmurs, rubs, or gallops. PULMONARY: Minimal expiratory wheezing ABDOMEN: Soft, nontender, nondistended, normoactive bowel sounds. No palpable organomegaly. MUSCULOSKELETAL: No joint swelling or deformity. EXTREMITIES: No cyanosis, clubbing, or pedal edema. NEUROLOGICAL: Gross neurological examination did not reveal any focal deficits. SKIN: No rashes. Assessment and Plan Plan: -Angioedema, multiple ALLERGIES: Etiology of angioedema is unknown p -Tachycardia secondary to angioedema and obesity contributing to that - diabetes mellitus probably type II: -Ulcer in the right arm as mentioned above Patient Condition at Discharge: Serious Plan - Discharge Summary Discharge Rx Participant: No New Discharge Prescriptions: New Albuterol Inhaler [Ventolin Hfa Inhaler] 1 - 2 puff INHALATION Q6HR PRN #1 inhaler PRN Reason: Shortness Of Breath Or Wheezing Budesonide-Formot 160-4.5 Mcg [Symbicort 160-4.5 Mcg Inhaler] 2 puff INHALATION BID #1 inhaler Insulin Detemir [Levemir] 80 unit SQ HS syr Metoprolol Tartrate 25 mg PO BID #60 tab Nystatin 100,000 Unit/gm Powd [Mycostatin Powder] 1 applic TOPICAL TID #60 applic Discharge Medication List Albuterol Inhaler [Ventolin Hfa Inhaler] 1 - 2 puff INHALATION Q6HR PRN #1 inhaler 10/15/17 [Rx] Budesonide-Formot 160-4.5 Mcg [Symbicort 160-4.5 Mcg Inhaler] 2 puff INHALATION BID #1 inhaler 10/15/17 [Rx] Insulin Detemir [Levemir] 80 unit SQ HS syr 10/15/17 [Rx] Metoprolol Tartrate 25 mg PO BID #60 tab 10/15/17 [Rx] Nystatin 100,000 Unit/gm Powd [Mycostatin Powder] 1 applic TOPICAL TID #60 applic 10/15/17 [Rx] Follow up Appointment(s)/Referral(s): Nonstaff,Physician [Primary Care Provider] - 3 Days Discharge Disposition: HOME SELF-CARE
[2017-10-15 11:46] LABS: Anisocytosis Slight; Basophils % (A) 0 %; Eosinophils # (A) 0.2 k/uL (0-0.7); Eosinophils % (A) 1 %; HCT 32.5 % (34.0-46.0); HGB 9.5 gm/dL (11.4-16.0); Hypochromasia Marked; Lymphocytes # (A) 1.4 k/uL (1.0-4.8); Lymphocytes % (A) 9 %; MCH 20.7 pg (25.0-35.0); MCHC 29.3 g/dL (31.0-37.0); MCV 70.5 fL (80.0-100.0); Mean Platelet Volume 7.1; Microcytosis Marked; Monocytes # (A) 0.4 k/uL (0-1.0); Monocytes % (A) 2 %; Neutrophils # (A) 13.7 k/uL (1.3-7.7); Neutrophils % (A) 87 %; Platelet Count 344 k/uL (150-450); Poikilocytosis Slight; RBC 4.61 m/uL (3.80-5.40); RDW 18.8 % (11.5-15.5); WBC 15.8 k/uL (3.8-10.6)
[2017-10-15 12:15] LABS: Anion Gap 16 mmol/L; Blood Urea Nitrogen 26 mg/dL (7-17); Calcium 10.2 mg/dL (8.4-10.2); Carbon Dioxide 21 mmol/L (22-30); Chloride 98 mmol/L (98-107); Glucose 282 mg/dL (74-99); Potassium 4.7 mmol/L (3.5-5.1); Sodium 135 mmol/L (137-145)
== END 2017-10-15 15:31 | disposition home or self-care (01) ==
LOC: EC 09:43 → 5MS5E 10:19
PROVIDERS: ADMIT Hospitalist; ATTEND Hospitalist
DX: T78.3XXA Angioneurotic edema, initial encounter (principal); M54.5 Low back pain; G89.29 Other chronic pain; E66.9 Obesity, unspecified; E11.9 Type 2 diabetes mellitus without complications; F20.9 Schizophrenia, unspecified; F32.9 Major depressive disorder, single episode, unspecified; F41.9 Anxiety disorder, unspecified; G40.909 Epilepsy, unspecified, not intractable, without status epilepticus; G47.33 Obstructive sleep apnea (adult) (pediatric); I11.0 Hypertensive heart disease with heart failure; I50.9 Heart failure, unspecified; L98.491 Non-pressure chronic ulcer of skin of other sites limited to breakdown of skin; J45.909 Unspecified asthma, uncomplicated; K21.9 Gastro-esophageal reflux disease without esophagitis; R00.0 Tachycardia, unspecified; B48.8 Other specified mycoses; M06.9 Rheumatoid arthritis, unspecified; Z82.49 Family history of ischemic heart disease and other diseases of the circulatory system; Z82.5 Family history of asthma and other chronic lower respiratory diseases; Z86.73 Personal history of transient ischemic attack (TIA), and cerebral infarction without residual deficits; Z99.89 Dependence on other enabling machines and devices; Z87.891 Personal history of nicotine dependence; Z79.4 Long term (current) use of insulin; Z79.51 Long term (current) use of inhaled steroids; Z79.899 Other long term (current) drug therapy
CPT/HCPCS: 96376 ×2; 96375 ×2; 96374; 99285; 93005; 80048; 85025; 80306; 76882; G0378 ×2; J1200 ×2; J1100 ×2